=== PATIENT | female | born 2000 | race Caucasian/White ===

== ENCOUNTER → 2023-10-14 | Outpatient (CLI) | payer OTHER, SELFPAY ==
[2023-10-21 16:29] LABS: HPV Reflexed? NOT INDICATED
== END | disposition home or self-care (01) ==
LOC: LABSPEC 16:55
PROVIDERS: PCP Pediatrics; Referring Provider Nurse Practitioner Family; Visit Provider Nurse Practitioner Family
DX: Z12.4 Encounter for screening for malignant neoplasm of cervix (principal)
CPT/HCPCS: 88175; G0145